=== PATIENT | male | born 1955 | race Caucasian/White ===

== ENCOUNTER 2021-04-30 17:25 | Inpatient (IN) | payer OTHER ==
[~2021-04-30] VITALS: Ht 170.2 cm; Wt 104.3 kg
[2021-04-30] MEDS ORDERED: MECLIZINE 25MG TABLET PO ONE (18:45)
[2021-04-30] MEDS ORDERED: SODIUM CHLORIDE 0.9% 1,000 ML IV ONE (18:45)
[2021-04-30 19:07] LABS: CLARITY URINE CLEAR (CLEAR); COLOR URINE DARK YELLOW (YELLOW); KETONES URINE TRACE (NEGATIVE); LEUKOCYTE ESTERASE URINE NEGATIVE (NEGATIVE); NITRITE URINE NEGATIVE (NEGATIVE); OCCULT BLOOD URINE NEGATIVE (NEGATIVE); PH URINE 5.5 (4.5-8.0); PROTEIN URINE 1+ (NEGATIVE); SPECIFIC GRAVITY URINE 1.023 (1.005-1.030); UROBILINOGEN URINE 0.2 E.U./dL (0.2-1.0)
[2021-04-30 19:36] LABS: BASOPHILS % 0.2 % (0.0-2.0); EOSINOPHILS % 0.2 % (0.0-5.0); HEMOGLOBIN. 13.7 g/dL (14.0-18.0); LYMPHOCYTES % 9.4 % (20.0-50.0); MEAN CORPUSCULAR HEMOGLOBIN 29.8 pg (28.0-32.0); MEAN CORPUSCULAR VOLUME 89.3 fL (80.0-94.0); MEAN PLATELET VOLUME 9.3 fl (7.4-10.4); MONOCYTES % 5.5 % (2.0-8.0); NEUTROPHILS % 84.7 % (40.0-76.0); PLATELET 199 x1000/uL (130-400); RED BLOOD CELL COUNT 4.59 mill/uL (4.7-6.1); RED CELL DISTRIBUTION WIDTH 13.4 % (11.6-14.6)
[2021-04-30 19:40] LABS: CHLORIDE 106 mEq/L (98-107)
[2021-04-30] MEDS ORDERED: DEXAMETHASONE 4MG/ML 1ML VIAL IV ONE (22:15)
[2021-04-30] MEDS ORDERED: PIPERACILLIN/TAZ 3.375G PREMIX 50 ML IV NR (22:41)
[2021-04-30] MEDS ORDERED: HYDROCODONE/ACETAMINOPHEN 5/325MG TABLET PO PRN (22:45)
[2021-04-30] MEDS ORDERED: GUAIFENESIN 200MG/10ML SUGAR FREE UDC PO PRN (22:45)
[2021-04-30] MEDS ORDERED: DOCUSATE SODIUM 100MG CAPSULE PO PRN (22:45)
[2021-04-30] MEDS ORDERED: ONDANSETRON HCL 4MG/2ML INJ IV PRN (22:45)
[2021-04-30] MEDS ORDERED: ACETAMINOPHEN 325MG TABLET PO PRN (22:45)
[2021-04-30] MEDS: SODIUM CHLORIDE 0.9% 1,000 ML IV SCH (23:57)
[2021-05-01] MEDS: ENOXAPARIN 30MG/0.3ML SYR SUBCUT SCH ×3 (01:02→21:18)
[2021-05-01] MEDS ORDERED: PIPERACILLIN/TAZOBACTAM 3.375 G in DEXTROSE 5% WATER 50 ML IV SCH (06:00)
[2021-05-01 06:32] LABS: HEMATOCRIT. 37.7 % (42.0-52.0); HEMOGLOBIN. 12.5 g/dL (14.0-18.0); MEAN CORPUSCULAR HEMOGLOBIN 29.6 pg (28.0-32.0); MEAN CORPUSCULAR VOLUME 89.5 fL (80.0-94.0); MEAN PLATELET VOLUME 9.8 fl (7.4-10.4); PLATELET 191 x1000/uL (130-400); RED BLOOD CELL COUNT 4.21 mill/uL (4.7-6.1); RED CELL DISTRIBUTION WIDTH 13.5 % (11.6-14.6)
[2021-05-01 06:35] LABS: CHLORIDE 110 mEq/L (98-107)
[2021-05-01 06:41] LABS: LDL CHOLESTEROL 42 mg/dL (5-100)
[2021-05-01 06:44] LABS: HDL CHOLESTEROL 39 mg/dL (40-59)
[2021-05-01 08:58] LABS: PLATELET ESTIMATE NORMAL
[2021-05-01] MEDS: SODIUM CHLORIDE 0.9% 1,000 ML IV SCH (13:27)
[2021-05-01] MEDS: DEXAMETHASONE 10 MG/ML VIAL IV SCH (14:05)
[2021-05-01] MEDS: PIPERACILLIN/TAZOBACTAM 3.375G in DEXT 5% WATER 50ML IV SCH ×2 (14:15→22:21)
[2021-05-01] MEDS ORDERED: ALBUTEROL 6.7GM HFA INHALER ORI PRN (16:00)
[2021-05-02] MEDS: SODIUM CHLORIDE 0.9% 1,000 ML IV SCH ×2 (02:37→15:09)
[2021-05-02] MEDS ORDERED: NALOXONE HCL 0.4 MG/ML 1ML VIAL IV PRN (04:30)
[2021-05-02 05:00] VITALS: BP 122/74
[2021-05-02] MEDS ORDERED: LOSA25TA26 PO (06:55)
[2021-05-02] MEDS ORDERED: ATOR10TA PO (06:55)
[2021-05-02] MEDS: PIPERACILLIN/TAZOBACTAM 3.375G in DEXT 5% WATER 50ML IV SCH ×3 (07:25→21:29)
[2021-05-02 08:00] VITALS: BP 159/75
[2021-05-02] MEDS: ENOXAPARIN 30MG/0.3ML SYR SUBCUT SCH ×2 (08:13→21:28)
[2021-05-02] MEDS: DEXAMETHASONE 10 MG/ML VIAL IV SCH (08:13)
[2021-05-02 11:51] VITALS: BP 145/83
[2021-05-02] MEDS ORDERED: PNEUMOCOCCAL 23-VAL P-SAC VAC 0.5 ML IM ONE (12:00)
[2021-05-02] MEDS ORDERED: INFLUENZA VACCINE 05/PF 0.5 ML SYRINGE IM ONE (12:00)
[2021-05-02 16:00] VITALS: BP 147/79
[2021-05-02 19:54] VITALS: BP 157/77
[2021-05-03] VITALS (7 sets, daily range): BP systolic 127–162; BP diastolic 73–80
[2021-05-03] MEDS: PIPERACILLIN/TAZOBACTAM 3.375G in DEXT 5% WATER 50ML IV SCH ×3 (06:25→21:41)
[2021-05-03] MEDS: DEXAMETHASONE 10 MG/ML VIAL IV SCH (08:20)
[2021-05-03] MEDS: ENOXAPARIN 30MG/0.3ML SYR SUBCUT SCH ×2 (08:20→21:42)
[2021-05-03] MEDS: CLONIDINE 0.1MG TABLET PO PRN (08:21)
[2021-05-03] MEDS: SODIUM CHLORIDE 0.9% 1,000 ML IV SCH (16:45)
[2021-05-04] VITALS: BP 135/80
[2021-05-04 04:00] VITALS: BP 117/77
[2021-05-04] MEDS: PIPERACILLIN/TAZOBACTAM 3.375G in DEXT 5% WATER 50ML IV SCH ×3 (05:29→21:30)
[2021-05-04 08:00] VITALS: BP 153/92
[2021-05-04] MEDS: DEXAMETHASONE 10 MG/ML VIAL IV SCH (09:05)
[2021-05-04] MEDS: ENOXAPARIN 30MG/0.3ML SYR SUBCUT SCH ×2 (09:06→19:55)
[2021-05-04 12:00] VITALS: BP 154/79
[2021-05-04 14:01] LABS: BG BASE EXCESS -0.7 mmol/L (-2.0-2.0); BG CARBOXYHEMOGLOBIN 0.4 % (0.5-1.5); BG DEOXYHEMOGLOBIN 9.1 % (0.0-5.0); BG FRACTION INSPIRED OXYGEN 21; BG HCO3 ACT 20.7 mmol/L (22.0-26.0); BG METHEMOGLOBIN 0.3 % (0.0-1.5); BG OXYGEN SATURATION 90.8 % (92.0-98.5); BG OXYHEMOGLOBIN 90.2 % (94.0-97.0); BG PCO2 26.3 mmHg (35.0-45.0); BG PH 7.513 (7.350-7.450); BG PO2 58.1 mmHg (75.0-100.0); BG SAMPLE SITE RIGHT RADIAL; BG TOTAL HEMOGLOBIN 14.9 g/dL (12.0-18.0); BG VENT MODE ROOM AIR
[2021-05-04 16:00] VITALS: BP 134/85
[2021-05-04] MEDS: LORAZEPAM 0.5MG TABLET PO PRN (17:30)
[2021-05-04] MEDS: SODIUM CHLORIDE 0.9% 1,000 ML IV SCH ×2 (19:55→20:20)
[2021-05-04 20:00] VITALS: BP 127/89
[2021-05-05 00:05] VITALS: BP 121/77
[2021-05-05] MEDS: LORAZEPAM 0.5MG TABLET PO PRN (02:08)
[2021-05-05 04:00] VITALS: BP 142/76
[2021-05-05] MEDS: PIPERACILLIN/TAZOBACTAM 3.375G in DEXT 5% WATER 50ML IV SCH ×3 (05:44→22:11)
[2021-05-05] MEDS: SODIUM CHLORIDE 0.9% 1,000 ML IV SCH ×2 (05:45→22:12)
[2021-05-05 07:50] VITALS: BP 136/73
[2021-05-05] MEDS: DEXAMETHASONE 10 MG/ML VIAL IV SCH (08:43)
[2021-05-05] MEDS: ENOXAPARIN 30MG/0.3ML SYR SUBCUT SCH ×2 (08:44→22:11)
[2021-05-05 12:00] VITALS: BP 118/70
[2021-05-05 16:00] VITALS: BP 151/87
[2021-05-05 20:00] VITALS: BP 132/76
[2021-05-06] VITALS: BP 141/82
[2021-05-06 04:00] VITALS: BP 136/80
[2021-05-06 08:00] VITALS: BP 131/71
[2021-05-06] MEDS: DEXAMETHASONE 10 MG/ML VIAL IV SCH (09:01)
[2021-05-06] MEDS: ENOXAPARIN 30MG/0.3ML SYR SUBCUT SCH ×2 (09:02→20:54)
[2021-05-06 12:00] VITALS: BP 126/70
[2021-05-06] MEDS: SODIUM CHLORIDE 0.9% 1,000 ML IV SCH (12:55)
[2021-05-06 16:00] VITALS: BP 130/78
[2021-05-06 20:00] VITALS: BP 150/86
[2021-05-07] VITALS: BP 165/78
[2021-05-07] MEDS: CLONIDINE 0.1MG TABLET PO PRN (00:27)
[2021-05-07 04:00] VITALS: BP 146/80
[2021-05-07] MEDS: SODIUM CHLORIDE 0.9% 1,000 ML IV SCH ×2 (05:11→15:46)
[2021-05-07 08:00] VITALS: BP 151/78
[2021-05-07] MEDS: DEXAMETHASONE 10 MG/ML VIAL IV SCH (08:15)
[2021-05-07] MEDS: ENOXAPARIN 30MG/0.3ML SYR SUBCUT SCH ×2 (08:16→20:39)
[2021-05-07] MEDS: LOSARTAN POTASSIUM 25 MG TABLET PO SCH (09:01)
[2021-05-07 12:00] VITALS: BP 138/81
[2021-05-07 16:00] VITALS: BP 130/68
[2021-05-07 17:02] LABS: BG BASE EXCESS -1.4 mmol/L (-2.0-2.0); BG CARBOXYHEMOGLOBIN 0.3 % (0.5-1.5); BG DEOXYHEMOGLOBIN 3.4 % (0.0-5.0); BG FRACTION INSPIRED OXYGEN 21; BG HCO3 ACT 21.3 mmol/L (22.0-26.0); BG METHEMOGLOBIN 0.2 % (0.0-1.5); BG OXYGEN SATURATION 96.6 % (92.0-98.5); BG OXYHEMOGLOBIN 96.1 % (94.0-97.0); BG PCO2 30.6 mmHg (35.0-45.0); BG PH 7.461 (7.350-7.450); BG PO2 86.9 mmHg (75.0-100.0); BG SAMPLE SITE RIGHT RADIAL; BG TOTAL HEMOGLOBIN 13.9 g/dL (12.0-18.0); BG VENT MODE ROOM AIR
[2021-05-07 20:00] VITALS: BP 134/82
[2021-05-07] MEDS: ATORVASTATIN CALCIUM 10MG TABLET PO SCH (20:39)
[2021-05-08] VITALS: BP 137/77
[2021-05-08 04:00] VITALS: BP 146/81
[2021-05-08] MEDS: SODIUM CHLORIDE 0.9% 1,000 ML IV SCH ×2 (04:28→17:40)
[2021-05-08 08:00] VITALS: BP 142/85
[2021-05-08] MEDS: ENOXAPARIN 30MG/0.3ML SYR SUBCUT SCH ×2 (08:19→20:40)
[2021-05-08] MEDS: DEXAMETHASONE 10 MG/ML VIAL IV SCH (08:19)
[2021-05-08] MEDS: LOSARTAN POTASSIUM 25 MG TABLET PO SCH (08:19)
[2021-05-08 12:00] VITALS: BP 145/83
[2021-05-08 16:00] VITALS: BP 143/56
[2021-05-08 20:00] VITALS: BP 134/68
[2021-05-08] MEDS: ATORVASTATIN CALCIUM 10MG TABLET PO SCH (20:40)
[2021-05-08] MEDS: LORAZEPAM 0.5MG TABLET PO PRN (20:40)
[2021-05-09 00:05] VITALS: BP 124/69
[2021-05-09 04:00] VITALS: BP 120/76
[2021-05-09] MEDS: SODIUM CHLORIDE 0.9% 1,000 ML IV SCH ×2 (06:47→21:08)
[2021-05-09 07:50] LABS: HEMATOCRIT 40.7 % (42.0-52.0); HEMOGLOBIN 13.6 g/dL (14.0-18.0); MEAN CORPUSCULAR HEMOGLOBIN 29.7 pg (28.0-32.0); MEAN CORPUSCULAR VOLUME 88.5 fL (80.0-94.0); PLATELET 356 x1000/uL (130-400); RED CELL DISTRIBUTION WIDTH 13.3 % (11.6-14.6)
[2021-05-09 08:00] VITALS: BP 144/75
[2021-05-09 08:02] LABS: CHLORIDE 107 mEq/L (98-107)
[2021-05-09] MEDS: ENOXAPARIN 30MG/0.3ML SYR SUBCUT SCH ×2 (08:06→21:09)
[2021-05-09] MEDS: DEXAMETHASONE 10 MG/ML VIAL IV SCH (08:06)
[2021-05-09] MEDS: LOSARTAN POTASSIUM 25 MG TABLET PO SCH (08:06)
[2021-05-09 12:00] VITALS: BP 132/65
[2021-05-09 16:00] VITALS: BP 129/70
[2021-05-09 20:00] VITALS: BP 131/64
[2021-05-09] MEDS ORDERED: LORAZEPAM 0.5MG TABLET PO PRN (20:30)
[2021-05-09] MEDS: ATORVASTATIN CALCIUM 10MG TABLET PO SCH (21:08)
[2021-05-10] VITALS: BP 128/66
[2021-05-10 04:00] VITALS: BP 134/72
[2021-05-10 08:00] VITALS: BP 124/70
[2021-05-10] MEDS: DEXAMETHASONE 10 MG/ML VIAL IV SCH (08:22)
[2021-05-10] MEDS: ENOXAPARIN 30MG/0.3ML SYR SUBCUT SCH (08:22)
[2021-05-10] MEDS: LOSARTAN POTASSIUM 25 MG TABLET PO SCH (08:22)
[2021-05-10] MEDS: SODIUM CHLORIDE 0.9% 1,000 ML IV SCH (09:04)
[2021-05-10 10:55] VITALS: BP 124/70
== END 2021-05-10 11:50 | disposition home or self-care (01) | DRG 871 ==
LOC: ER 17:25 → MICUSO 22:08 → 7WST 05-02 14:31
PROVIDERS: ADMIT Hospitalist; ATTEND Hospitalist
DX: A41.89 Other specified sepsis (principal); J12.82 Pneumonia due to coronavirus disease 2019; J96.01 Acute respiratory failure with hypoxia; U07.1 COVID-19; E78.5 Hyperlipidemia, unspecified; I10 Essential (primary) hypertension; J01.90 Acute sinusitis, unspecified; Z83.3 Family history of diabetes mellitus
CPT/HCPCS: 36415; 36600; 71045; 71250; 80048; 80053; 80061; 81003; 82375; 82728; 82805; 83036; 83615; 83880; 84484; 85025; 85027; 86140; 87426; 93005; 93970; 99291; C1893; J1100; J1650; J2543; J7030; J7040; J7060; J8597; U0003; U0005

== ENCOUNTER → 2025-02-14 | Day surgery (SDC) | payer MEDICARE ==
[~2025-02-14] VITALS: Ht 172.7 cm; Wt 108.9 kg
[~2025-02-14] MED LIST: ACETAMINOPHEN 1,000MG/100ML PREMIX IV PRN; ATOR10TA PO; BUPIVACAINE HCL/PF 0.5% (5MG/ML) 10ML ONE; CEFAZOLIN SODIUM 1000MG/VIAL ONE; FAMOTIDINE 20MG/2ML VIAL IV ONE; FAMOTIDINE 20MG/2ML VIAL IV PRN; FENTANYL CITRATE/PF 50MCG/ML 2ML VIAL ONE; HYDRALAZINE 20MG/ML VIAL IV PRN; HYDROMORPHONE HCL/PF 1MG/ML INJ IV PRN; LABETALOL 5MG/ML 4ML INJ IV PRN; LACTATED RINGERS 1,000 ML IV SCH; LIDOCAINE HCL 1% 20ML VIAL ONE; MEPERIDINE HCL/PF 25MG/ML CPJ IV PRN; MIDAZOLAM HCL 2 MG/2 ML VIAL ONE; ONDANSETRON HCL 4MG/2ML INJ IV PRN; ONDANSETRON HCL 4MG/2ML INJ ONE; PROPOFOL 200MG/20ML VIAL IV ONE; SKIN ADHESIVE 0.7 GM EA TOP ONE; T3 PO; VALS160T28 PO; VALS1TAB75 PO
== END | disposition home or self-care (01) ==
LOC: OR 07:11
PROVIDERS: ATTEND Surgery
DX: R22.2 Localized swelling, mass and lump, trunk (principal); L72.0 Epidermal cyst; I10 Essential (primary) hypertension; E78.5 Hyperlipidemia, unspecified; M17.11 Unilateral primary osteoarthritis, right knee; Z79.899 Other long term (current) drug therapy; Z98.890 Other specified postprocedural states; Z83.3 Family history of diabetes mellitus; Z87.891 Personal history of nicotine dependence
CPT/HCPCS: 11403; 11402; 88304; 82962; J3010; J0665; J0690; J1308; J2003; J2250; J2405; J2704